=== PATIENT | female | born 1970 | race Caucasian/White ===

== ENCOUNTER 2024-07-13 08:51 | Emergency (ER) | payer OTHER ==
[~2024-07-13] VITALS: Ht 162.6 cm; Wt 68.0 kg
[2024-07-13] MEDS ORDERED: SYNTHROID75 MCG (08:56)
[2024-07-13] MEDS ORDERED: CEFTRIAXONE SODIUM 1,000 MG VIAL IM STA (09:31)
[2024-07-13] MEDS ORDERED: NASAL MIST126 ML NASAL (11:28)
[2024-07-13] MEDS ORDERED: DUI500 PO (11:28)
== END 2024-07-13 11:39 | disposition home or self-care (01) ==
LOC: ER 08:53
DX: L03.031 Cellulitis of right toe (principal)
CPT/HCPCS: 96372; 99282; J0696